=== PATIENT | male | born 1995 | race Caucasian/White ===

== ENCOUNTER 2025-10-09 16:13 | Emergency (ER) | payer MEDICAID ==
[2025-10-09] MEDS: Take Home: Albuterol 0.083% 2.5 MG/3 ML Neb Soln, 5 Neb Pack NEB ONE (16:43)
[2025-10-09] MEDS: Take Home: predniSONE 20 MG, 4 Tab Pack PO ONE (16:43)
== END 2025-10-09 16:50 | disposition home or self-care (01) ==
LOC: CC.ED 16:13
DX: J45.21 Mild intermittent asthma with (acute) exacerbation (principal); Z90.49 Acquired absence of other specified parts of digestive tract; Z88.2 Allergy status to sulfonamides
CPT/HCPCS: 94640; 99284; A9270; J3535; J7512; J7620